=== PATIENT | female | born 1980 | race Caucasian/White ===

== ENCOUNTER 2016-11-14 08:59 | Emergency (ER) | payer BC ==
[~2016-11-14] VITALS: Ht 175.3 cm; Wt 126.4 kg
[~2016-11-14 08:59] MED LIST: AMOXICILLIN 50500 MG PO; CEPHALEXIN500 M1 PO; FLEXERIL 1010 MG/TAB PO; K-DUR 2020 MEQ PO; NO HOME MEDICATIONS; NORCO 325 MG-7.1 TAB PO; PHENERGAN 25 TA25 MG PO; PHENERGAN W/CO120 ML PO; PHENERGAN25 MG RC; PRENATAL1 TA1 PO; ZITHROMAX 250M250 MG PO; ZOFRAN ODT4 MG PO
[2016-11-14 09:02] VITALS: BP 154/94; PULSE 59; TEMP 96.9
[2016-11-14] MEDS ORDERED: ULTRAM 50MG TAB50 MG PO (09:29)
[2016-11-14] MEDS ORDERED: LIDODERM 5% PATC1 EA TP (09:31)
== END 2016-11-14 09:53 | disposition home or self-care (01) ==
LOC: COL.ER 08:59
DX: M77.8 Other enthesopathies, not elsewhere classified (principal); W19.XXXA Unspecified fall, initial encounter; Y92.69 Other specified industrial and construction area as the place of occurrence of the external cause

== ENCOUNTER 2017-03-24 10:40 | Emergency (ER) | payer BC ==
[~2017-03-24] VITALS: Ht 175.3 cm; Wt 122.7 kg
[~2017-03-24 10:40] MED LIST changes: +LIDODERM 5% PATC1 EA TP; +ULTRAM 50MG TAB50 MG PO
[2017-03-24 10:49] VITALS: BP 127/88; PULSE 78; TEMP 98.3
[2017-03-24] MEDS ORDERED: ZITHROMAX Z PA250 MG PO (11:30)
[2017-03-24] MEDS ORDERED: TESSALON P100 MG/CAP PO (11:30)
== END 2017-03-24 11:45 | disposition home or self-care (01) ==
LOC: COL.ER 10:40
DX: J40 Bronchitis, not specified as acute or chronic (principal)

== ENCOUNTER 2018-07-23 09:09 | Emergency (ER) | payer BC ==
[~2018-07-23] VITALS: Ht 175.3 cm; Wt 122.7 kg
[~2018-07-23 09:09] MED LIST changes: +TESSALON P100 MG/CAP PO; +ZITHROMAX Z PA250 MG PO
[2018-07-23 09:32] VITALS: TEMP 97.8
[2018-07-23] MEDS ORDERED: MIRENA52 MG IY (10:32)
[2018-07-23] MEDS ORDERED: ULTRAM 50MG TAB50 MG PO (12:01)
[2018-07-23 12:29] VITALS: BP 139/90; PULSE 68
== END 2018-07-23 12:29 | disposition home or self-care (01) ==
LOC: COL.ER 09:09
DX: M79.661 Pain in right lower leg (principal); K58.9 Irritable bowel syndrome, unspecified; Z90.49 Acquired absence of other specified parts of digestive tract; Z98.890 Other specified postprocedural states

== ENCOUNTER 2018-09-06 08:41 | Emergency (ER) | payer OTHER, BC ==
[~2018-09-06] VITALS: Ht 175.3 cm; Wt 122.7 kg
[~2018-09-06 08:41] MED LIST changes: +MIRENA52 MG IY
[2018-09-06 08:54] VITALS: TEMP 97.6
[2018-09-06] MEDS ORDERED: FLEXERIL 1010 MG/TAB PO (09:17)
[2018-09-06 09:47] VITALS: BP 131/71; PULSE 77
== END 2018-09-06 09:47 | disposition home or self-care (01) ==
LOC: COL.ER 08:41
DX: M54.5 Low back pain (principal); Z98.890 Other specified postprocedural states

== ENCOUNTER 2020-03-19 07:27 | Emergency (ER) | payer BC ==
[~2020-03-19] VITALS: Ht 175.3 cm; Wt 122.7 kg
[2020-03-19 07:40] VITALS: TEMP 99.9
[2020-03-19 09:57] VITALS: BP 134/75; PULSE 82
== END 2020-03-19 09:25 | disposition home or self-care (01) ==
LOC: COL.ER 07:27
DX: U07.1 COVID-19 (principal)